=== PATIENT | female | born 1990 | race Caucasian/White ===

== ENCOUNTER 2016-11-17 19:46 | Emergency (ER) | payer SELFPAY ==
[~2016-11-17] VITALS: Ht 167.6 cm; Wt 79.4 kg
[2016-11-17 20:27] VITALS: BP 122/74; PULSE 98; RESP 18; TEMP 98.5; O2SAT 100
--- NOTE | 2016-11-17 20:29 | NUR ---
PT. IN BED 2, ASSUMED CARE
--- NOTE | 2016-11-17 20:30 | NUR ---
DR. DOWELL AT BEDSIDE EXAMINING THE PT.
[2016-11-17] MEDS ORDERED: CARB200T68 PO ×2 (20:33→20:34)
--- NOTE | 2016-11-17 20:35 | NUR ---
PT. TO ER FOR COULD SYMPTOMS AND STATING THAT SHE HAD A EPISODE LASTED X 4 MINS WITNESSED BY FAMILY AT 1700 HRS. STATES THAT SHE HAS A Hx OF SEIZURE, RAN OUT OF HER TEGRETOL AND HAD AN EPISODE, PT. STABLE AT THIS TIME
[2016-11-17 21:30] VITALS: BP 128/72; PULSE 98; RESP 18; TEMP 98.5; O2SAT 100
--- NOTE | 2016-11-17 21:30 | NUR ---
Patient given written and verbal discharge instructions and verbalizes understanding. ER MD DR. DOWELL discussed with patient the results and treatment provided. Patient in stable condition. ID arm band removed. Rx of TEGRETOL given. Patient educated on pain management and to follow up with PMD. Pain Scale 0/10. Opportunity for questions provided and answered.
== END 2016-11-17 21:30 | disposition home or self-care (01) ==
LOC: SED 19:46
DX: Z76.0 Encounter for issue of repeat prescription (principal); R56.9 Unspecified convulsions; B34.9 Viral infection, unspecified; R03.0 Elevated blood-pressure reading, without diagnosis of hypertension; Z88.0 Allergy status to penicillin; Z91.040 Latex allergy status
CPT/HCPCS: 99283